=== PATIENT | female | born 1995 | race Two or more races ===

== ENCOUNTER 2025-10-06 12:49 | Emergency (ER) | payer OTHER ==
[~2025-10-06] VITALS: Ht 162.6 cm; Wt 54.4 kg
[2025-10-06 12:57] VITALS: BP 98/72; TEMP 98.9; O2SAT 97
== END 2025-10-06 14:06 | disposition home or self-care (01) ==
LOC: ER 13:00
DX: K04.7 Periapical abscess without sinus (principal); Z88.0 Allergy status to penicillin; Z88.2 Allergy status to sulfonamides